=== PATIENT | male | born 1965 | race Caucasian/White ===

== ENCOUNTER 2019-04-07 00:16 | Emergency (ER) | payer SELFPAY ==
[~2019-04-07] VITALS: Ht 180.3 cm; Wt 122.5 kg
[2019-04-07] MEDS ORDERED: Clindamycin 900mg 50 ML IVPB ONE (03:00)
[2019-04-07] MEDS ORDERED: NORVASC10 MG ORAL (03:12)
[2019-04-07] MEDS ORDERED: CLINDAMYCIN HC300 MG ORAL (03:12)
--- NOTE | 2019-04-07 03:12 | Emergency Room Report ---
History of Present Illness General Chief Complaint: Edema Source: Patient Present Illness HPI This is a 53-year-old male with no past medical history. He presents with complaint of redness and swelling to his left leg. Onset for 3 to 4 weeks now but worsening the last few days. He had an abrasion to the back of his leg and he did not treated. Now increasing swelling and redness. No fever chills. Throbbing burning sensation. Pain is 7 out of 10. Worse with walking. No other complaint. Allergies: Coded Allergies: No Known Allergies (Unverified , 04/07/19) Patient History Past Medical History: see triage record, old chart reviewed Past Surgical History: none Pertinent Family History: none Social History: Reports: smoking, drug use Immunizations: other Reviewed Nursing Documentation: PMH: Agreed; PSxH: Agreed Nursing Documentation-PMH Past Medical History: No Stated History Review of Systems Eye: Denies: eye pain, blurred vision ENT: Denies: ear pain, nose congestion, throat swelling Respiratory: Denies: cough, shortness of breath Cardiovascular: Denies: chest pain, palpitations Gastrointestinal: Denies: abdominal pain, diarrhea, nausea, vomiting Musculoskeletal: Denies: back pain, joint pain Skin: Denies: rash Neurological: Denies: headache, numbness Endocrine: Denies: increased thirst, increased urine Hematologic/Lymphatic: Denies: easy bruising All Other Systems: negative except mentioned in HPI Physical Exam Vital Signs Date Time Temp Pulse Resp B/P (MAP) Pulse Ox O2 Delivery O2 Flow Rate FiO2 04/07/19 01:18 97.9 100 12 200/127 (151) 95 Room Air Vitals with high blood pressure Sp02 EP Interpretation: reviewed, normal General Appearance: well appearing, no apparent distress, alert Head: normocephalic, atraumatic Eyes: bilateral eye PERRL, bilateral eye EOMI ENT: hearing grossly normal, normal pharynx Neck: full range of motion, supple, no meningismus Respiratory: chest non-tender, lungs clear, normal breath sounds Cardiovascular #1: regular rate, rhythm, no murmur Gastrointestinal: normal bowel sounds, non tender, no mass, no organomegaly, no bruit, non-distended Musculoskeletal: back normal, normal range of motion, gait/station normal, other - Left lower extremity: He has a 2 cm ulceration to the lateral aspect the distal lateral lower extremity. He has erythema to the proximal calf area. No drainage. No crepitance. Psychiatric: mood/affect normal Medical Decision Making Diagnostic Impression: Primary Impression: Cellulitis of left lower extremity without foot Additional Impression: Hypertension Qualified Codes: I10 - Essential (primary) hypertension ER Course Patient presents with cellulitis of the lower extremity. There is no evidence of any abscess or crepitance. Patient does not want any blood work. He is willing to have an IV antibiotics. He claimed that his blood pressure elevated because his been up for last 2 days. I suspect that he also has substance abuse. Last Vital Signs Date Time Temp Pulse Resp B/P (MAP) Pulse Ox O2 Delivery O2 Flow Rate FiO2 04/07/19 01:18 97.9 100 12 200/127 (151) 95 Room Air Status: improved Disposition: HOME, SELF-CARE Condition: Stable Scripts Amlodipine Besylate (Norvasc) 10 Mg Tablet 10 MG ORAL DAILY, #30 TAB Prov: Bharathi Torres MD 04/07/19 Clindamycin Hcl (CLINDAMYCIN HCL) 300 Mg Capsule 300 MG ORAL THREE TIMES A DAY, #21 CAP Prov: Bharathi Torres MD 04/07/19 Referrals: NOT CHOSEN IPA/,REFERRING (PCP) Additional Instructions: Keep wound clean. With hydroperoxide and apply antibiotic ointment. Follow-up with your doctor in 7 days for recheck. Abstain from drugs and alcohol. Have your blood pressure rechecked. Return if worse. Bharathi Torres MD Apr 07, 2019 03:12
[2019-04-07 03:45] VITALS: BP 159/91
[2019-04-07 04:00] VITALS: BP 159/91
== END 2019-04-07 04:00 | disposition home or self-care (01) ==
LOC: EMR 02:42
DX: L03.116 Cellulitis of left lower limb (principal); I10 Essential (primary) hypertension; F17.200 Nicotine dependence, unspecified, uncomplicated; L97.929 Non-pressure chronic ulcer of unspecified part of left lower leg with unspecified severity
CPT/HCPCS: 96365; 99284; S0077